=== PATIENT | female | born 1940 | race Caucasian/White ===

== ENCOUNTER → 2018-09-10 12:39 | Outpatient (CLI) | payer BC ==
[2015-03-07 14:56] VITALS: BMI 24.1
[~2018-09-10 12:39] MED LIST: CALCIUM 500 + D1 TAB PO; COREG 3.1253.125 MG PO; LISINOPRIL5 MG PO; PRILOSEC20 MG PO; PRINIVIL20 MG PO
--- NOTE | 2018-09-11 10:27 | EC ---
PATIENT:KALINA SULLIVAN DATE OF SERVICE: 09/10/18 SEX: F MEDICAL RECORD: [id number] DATE OF : 38 [facility] AGE OF PATIENT: 78 ADMISSION DATE: 09/10/18 REFERRING PHYSICIAN: INTERPRETING PHYSICIAN: MIRACLE GUEVARA MD ECHOCARDIOGRAM REPORT ECHO CHARGES 4 ECHO COMPLETE Date: 09/10/18 CLINICAL DIAGNOSIS: HTN, HX OF MT/TR ECHOCARDIOGRAPHIC MEASUREMENTS (adult normal given) AC root (d.<3.7cm) 3.3 cm LV Septum d (<1.2 cm> 1.5 cm Valve Excursion 1.6 cm LV Septum (systole) 1.6 cm Left Atria (s.<4.0cm> 3.8 cm LVPW d(<1.2cm) 1.3 cm RV (d.<2.3cm) 2.8 cm LVPW (sytole) 1.4 cm LV diastole(<5.6CM) 4.5 cm MV E-F(>70mm/sec) cm LV systole 3.1 cm LVOT Diameter 1.9 cm MV exc.(>10mm) 1.7 cm Est.ejection fraction (50-75%) % DOPPLER: LVIT cm/sec A 84.0 cm/sec E 64.0 cm/sec LA cm/sec RVSP 42 mmHg LVOT 90 cm/sec AOP1/2T m/s Asc. Ao 125 cm/sec RVOT 61 cm/sec RA cm/sec PA 82 cm/sec AV Gradient Peak 6.29 mmHg AV Mean 3.16 mmHg AV Area 1.9 cm MV Gradient Peak 5.38 mmHg MV Mean 1.80 mmHg MV Area cm COMMENTS: Manager Research: Monty GILLIAM Digital Project Manager: 1 Dr. Guevara TAPE# PACS Pericardial Effusion N DATE OF SERVICE: 09/10/2018 FINDINGS: 1. Left ventricular chamber size is within normal limits. Left ventricular systolic function is normal. Overall ejection fraction is estimated at 60% to 65%. 2. Left atrium, right atrium, and right ventricular chamber sizes are within normal limit. 3. Valvular structures have normal structure and motion. 4. Doppler interrogation reveals mild mitral regurgitation and [id number] ECHOCARDIOGRAM REPORT [id number] KALINA SULLIVAN tricuspid regurgitation. No other valvular insufficiency or stenosis. Pulmonary systolic pressure is estimated at 42 mmHg. 5. No evidence of pericardial effusion or left ventricular thrombus. TRANSINT:[id number] Voice Confirmation ID: [id number] DOCUMENT ID: [id number] MIRACLE GUEVARA MD at 1027 CC: [id number] DICTATION DATE: 09/10/18 173 INTRAOPERATIVE NEURO TECH: 09/10/182003 DEP CLI 09/10/18 [place] [id number] [place] [id number]
== END | disposition home or self-care (01) ==
LOC: D.HCCARDIO 12:39
PROVIDERS: ATTEND Internal Medicine Interventional Cardiology
DX: I10 Essential (primary) hypertension (principal)